=== PATIENT | male | born 1995 | race Caucasian/White ===

== ENCOUNTER 2018-06-02 21:36 | Emergency (ER) | payer OTHER ==
[~2018-06-02] VITALS: Ht 167.6 cm; Wt 59.9 kg
[2018-06-02 21:39] VITALS: BP 125/63
--- NOTE | 2018-06-02 21:46 | NUR ---
PT AMBULATED TO BED 4 WITH VSS. ACCOMPANIED BY SISTER
--- NOTE | 2018-06-02 22:13 | NUR ---
PT BIB SELF C/O FEVER AND GENERAL WEAKNESS SINCE THIS AM AND C/O "BUMP" TO GENITAL AREA. PT IS AWAKE AND ALERT AND ACTING APPROPRIATE. PT KEVIN UTI SYMPTOMS, DENIES DRAINAGE, REDNESS TO AFFECTED AREA. PT ALSO TOOK PILL FROM DAD BUT STATES HE DOES NOT KNOW WHAT IT WAS. NO PMH
[2018-06-02] MEDS ORDERED: ALBUTEROL SULFATE/IPRATROPIU 3 ML SOL IH ONE (22:25)
[2018-06-02] MEDS ORDERED: AMOXICILLIN 500 MG CAP PO ONE (22:50)
[2018-06-02 23:40] VITALS: BP 115/76
--- NOTE | 2018-06-02 23:43 | NUR ---
Patient discharged with v/s stable. Written and verbal after care instructions given and explained. Patient alert, oriented and verbalized understanding of instructions. Ambulatory with steady gait. All questions addressed prior to discharge. ID band removed. Patient advised to follow up with PMD. Rx of PROMETHAZINE, AMOXICILLIN given. Patient educated on indication of medication including possible reaction and side effects. Opportunity to ask questions provided and answered.
== END 2018-06-02 23:42 | disposition home or self-care (01) ==
LOC: MED 21:36
DX: J18.9 Pneumonia, unspecified organism (principal)
CPT/HCPCS: 71045; 94640; 94760; 99283; J7620; Q0092

== ENCOUNTER 2018-08-26 10:41 | Emergency (ER) | payer OTHER ==
[~2018-08-26] VITALS: Ht 170.2 cm; Wt 52.3 kg
[2018-08-26 10:50] VITALS: BP 106/71
[2018-08-26 12:51] LABS: BASOPHILS % (AUTO) 0.2 % (0.0-2.0); EOSINOPHILS # (AUTO) 0.2 K/uL (0-0.4); EOSINOPHILS % (AUTO) 1.2 % (0.0-4.0); HEMATOCRIT 44.4 % (36-52); HEMOGLOBIN 14.5 g/dL (12.0-18.0); LYMPHOCYTES # (AUTO) 1.1 K/uL (2.0-11.5); LYMPHOCYTES % (AUTO) 8.3 % (20.5-51.1); MEAN CORPUSCULAR HEMOGLOBIN 26 pg (27-31); MEAN CORPUSCULAR HGB CONC 33 g/dL (33-37); MEAN CORPUSCULAR VOLUME 80.9 fL (80-94); MONOCYTES # (AUTO) 0.9 K/uL (0.8-1.0); MONOCYTES % (AUTO) 6.7 % (1.7-9.3); NEUTROPHILS # (AUTO) 10.6 K/uL (1.8-7.7); NEUTROPHILS % (AUTO) 83.6 % (42.2-75.2); PLATELET COUNT (AUTO) 436 K/uL (140-450); RED BLOOD CELL COUNT(AUTO) 5.49 MIL/uL (4.20-6.10); RED CELL DISTRIBUTION WIDTH 13.6 % (11.6-13.7); WHITE BLOOD COUNT (AUTO) 12.7 K/uL (4.8-10.8)
[2018-08-26 13:02] LABS: ANION GAP 11.7 (8-16); CARBON DIOXIDE 30.7 mmol/L (21-32); CREATININE 0.8 mg/dL (0.7-1.3); POTASSIUM 4.4 mmol/L (3.5-5.1)
[2018-08-26 13:11] LABS: ALBUMIN 3.8 g/dL (3.4-5.0); TOTAL BILIRUBIN 0.4 mg/dL (0.0-1.0)
[2018-08-26 14:06] VITALS: BP 115/73
[2018-08-27 09:25] LABS: LACTATE DEHYDROGENASE 143 IU/L (121-224)
[2018-08-28 10:12] LABS: LD1 FRACTION 20 % (17-32); LD2 FRACTION 27 % (25-40); LD3 FRACTION 25 % (17-27); LD4 FRACTION 11 % (5-13); LD5 FRACTION 17 % (4-20)
== END 2018-08-26 14:06 | disposition home or self-care (01) ==
LOC: MED 10:41
DX: R05 Cough (principal); R11.10 Vomiting, unspecified
CPT/HCPCS: 36415; 71045; 80053; 83625; 85025; 99285; Q0092

== ENCOUNTER 2018-09-24 16:24 | Inpatient (IN) | payer OTHER ==
[~2018-09-24] VITALS: Ht 167.6 cm; Wt 53.1 kg
[2018-09-24 16:58] VITALS: BP 121/70
[2018-09-24] MEDS ORDERED: NACL 0.9% 2,000 ML IV ONE (19:49)
[2018-09-24] MEDS ORDERED: LEVOFLOXACIN 750 MG/D5W PREMIX 150 ML IV ONE (19:50)
[2018-09-24] MEDS ORDERED: VANCOMYCIN 1,000 MG in DEXTROSE 5% 250 ML IV ONE (19:50)
[2018-09-24] MEDS ORDERED: VANCOMYCIN 1,000 MG VIAL ONE (20:22)
[2018-09-24 20:24] LABS: BASOPHILS % (AUTO) 0.3 % (0.0-2.0); EOSINOPHILS % (AUTO) 0.5 % (0.0-4.0); HEMATOCRIT 44.4 % (36-52); HEMOGLOBIN 14.4 g/dL (12.0-18.0); LYMPHOCYTES # (AUTO) 1.4 K/uL (2.0-11.5); LYMPHOCYTES % (AUTO) 14.8 % (20.5-51.1); MEAN CORPUSCULAR HEMOGLOBIN 26 pg (27-31); MEAN CORPUSCULAR HGB CONC 32 g/dL (33-37); MEAN CORPUSCULAR VOLUME 79.3 fL (80-94); MONOCYTES # (AUTO) 0.8 K/uL (0.8-1.0); MONOCYTES % (AUTO) 8.8 % (1.7-9.3); NEUTROPHILS % (AUTO) 75.6 % (42.2-75.2); PLATELET COUNT (AUTO) 475 K/uL (140-450); RED CELL DISTRIBUTION WIDTH 14.3 % (11.6-13.7); WHITE BLOOD COUNT (AUTO) 9.2 K/uL (4.8-10.8)
[2018-09-24 20:28] LABS: APPEARANCE,URINE CLEAR (CLEAR); BILIRUBIN,URINE NEGATIVE (NEGATIVE); BLOOD, URINE NEGATIVE (NEGATIVE); COLOR,URINE YELLOW (YELLOW); LEUKOCYTE ESTERASE ,URINE NEGATIVE (NEGATIVE); NITRITE, URINE NEGATIVE (NEGATIVE); UGLUCOSE NEGATIVE (NEGATIVE)
[2018-09-24 20:40] LABS: ALBUMIN 3.7 g/dL (3.4-5.0); ANION GAP 13.9 (8-16); CARBON DIOXIDE 30.2 mmol/L (21-32); CREATININE 0.9 mg/dL (0.7-1.3); POTASSIUM 4.1 mmol/L (3.5-5.1); TOTAL BILIRUBIN 0.4 mg/dL (0.0-1.0)
[2018-09-24] MEDS ORDERED: ACETAMINOPHEN 325 MG TAB PO PRN (20:50)
[2018-09-24] MEDS ORDERED: DOCUSATE SODIUM 100 MG GELCAP PO PRN (20:50)
[2018-09-24] MEDS ORDERED: HYDROcodone/APAP 7.5/325 MG 1 TAB PO PRN (20:50)
[2018-09-24] MEDS ORDERED: ONDANSETRON 4 MG/2 ML VIAL IM/IVP PRN (20:50)
[2018-09-24 20:54] LABS: PROTHROMBIN TIME 12.5 secs (10.8-13.4)
[2018-09-24 21:30] VITALS: BP 110/66
[2018-09-24 22:12] LABS: CHOL/HDL RATIO 3.7 (1-4.5); FREE T4 (FREE THYROXINE) 1.24 ng/dL (0.76-1.46); MAGNESIUM 2.1 mg/dL (1.8-2.4); PHOSPHORUS 3.5 mg/dL (2.5-4.9); THYROID STIMULATING HORMONE 1.17 uIU/mL (0.34-3.74)
[2018-09-24 22:14] LABS: BARBITURATE, URINE NEG. ng/ml (NEG <=200); BENZODIAZEPINE, URINE NEG. ng/mL (NEG <=200); CANNABINOID, URINE NEG. ng/mL (NEG <=50); COCAINE, URINE NEG. ng/mL (NEG <=300); OPIATE, URINE NEG. ng/mL (NEG <=2000); PHENCYCLIDINE SCREEN,URINE NEG. ng/mL (NEG <=25)
[2018-09-25] VITALS: BP 102/63
[2018-09-25] MEDS ORDERED: ISONIAZID 100 MG TAB PO SCH ×2 (00:30→21:00)
[2018-09-25] MEDS ORDERED: INFLUENZA VIRUS VACCINE QUAD 0.5 ML SYR IMVAC PRN (00:55)
[2018-09-25] MEDS ORDERED: diphenhydrAMINE 50 MG/ML VIAL IVP SCH (01:30)
[2018-09-25 03:53] VITALS: BP 96/53
[2018-09-25 08:00] VITALS: BP 98/51
[2018-09-25] MEDS ORDERED: ISONIAZID 100 MG TAB PO ONE (09:00)
[2018-09-25] MEDS ORDERED: PYRIDOXINE 50 MG TAB PO SCH (09:00)
[2018-09-25 16:00] VITALS: BP 103/64
[2018-09-26 04:00] VITALS: BP 102/51
[2018-09-26 07:44] LABS: BASOPHILS % (AUTO) 0.3 % (0.0-2.0); EOSINOPHILS # (AUTO) 0.4 K/uL (0-0.4); EOSINOPHILS % (AUTO) 5.4 % (0.0-4.0); HEMOGLOBIN 12.2 g/dL (12.0-18.0); LYMPHOCYTES # (AUTO) 1.4 K/uL (2.0-11.5); LYMPHOCYTES % (AUTO) 18.6 % (20.5-51.1); MEAN CORPUSCULAR HEMOGLOBIN 26 pg (27-31); MEAN CORPUSCULAR HGB CONC 32 g/dL (33-37); MEAN CORPUSCULAR VOLUME 79.1 fL (80-94); MONOCYTES % (AUTO) 12.9 % (1.7-9.3); NEUTROPHILS # (AUTO) 4.7 K/uL (1.8-7.7); NEUTROPHILS % (AUTO) 62.8 % (42.2-75.2); PLATELET COUNT (AUTO) 386 K/uL (140-450); RED CELL DISTRIBUTION WIDTH 14.4 % (11.6-13.7); WHITE BLOOD COUNT (AUTO) 7.5 K/uL (4.8-10.8)
[2018-09-26 08:00] VITALS: BP 95/57
[2018-09-26 08:11] LABS: T4 (THYROXINE) 9.3 ug/dL (4.5-12.0)
[2018-09-26 08:20] LABS: ANION GAP 11.4 (8-16); CARBON DIOXIDE 28.6 mmol/L (21-32); CREATININE 0.6 mg/dL (0.7-1.3)
[2018-09-26 08:44] LABS: MAGNESIUM 1.9 mg/dL (1.8-2.4); PHOSPHORUS 4.2 mg/dL (2.5-4.9)
[2018-09-26 16:00] VITALS: BP 101/54
[2018-09-27] VITALS: BP 107/51
[2018-09-27 08:00] VITALS: BP 95/57
[2018-09-27 08:22] LABS: BASOPHILS # (AUTO) 0.1 K/uL (0.00-0.22); EOSINOPHILS # (AUTO) 0.4 K/uL (0-0.4); EOSINOPHILS % (AUTO) 5.9 % (0.0-4.0); HEMATOCRIT 41.8 % (36-52); HEMOGLOBIN 13.2 g/dL (12.0-18.0); LYMPHOCYTES # (AUTO) 1.5 K/uL (2.0-11.5); LYMPHOCYTES % (AUTO) 21.3 % (20.5-51.1); MEAN CORPUSCULAR HEMOGLOBIN 25 pg (27-31); MEAN CORPUSCULAR HGB CONC 32 g/dL (33-37); MEAN CORPUSCULAR VOLUME 80.2 fL (80-94); MONOCYTES # (AUTO) 0.6 K/uL (0.8-1.0); MONOCYTES % (AUTO) 8.3 % (1.7-9.3); NEUTROPHILS # (AUTO) 4.4 K/uL (1.8-7.7); NEUTROPHILS % (AUTO) 63.5 % (42.2-75.2); PLATELET COUNT (AUTO) 437 K/uL (140-450); RED BLOOD CELL COUNT(AUTO) 5.21 MIL/uL (4.20-6.10); RED CELL DISTRIBUTION WIDTH 14.2 % (11.6-13.7); WHITE BLOOD COUNT (AUTO) 6.8 K/uL (4.8-10.8)
[2018-09-27 08:49] LABS: PROTHROMBIN TIME 10.5 secs (10.8-13.4)
[2018-09-27] MEDS ORDERED: SODIUM CHLORIDE 3% 4 ML SOL INH PRN (15:05)
[2018-09-27 16:00] VITALS: BP 100/58
[2018-09-28] VITALS: BP 102/56
[2018-09-28 08:00] VITALS: BP 96/55
[2018-09-28 11:53] LABS: BASOPHILS % (AUTO) 0.2 % (0.0-2.0); EOSINOPHILS # (AUTO) 0.3 K/uL (0-0.4); EOSINOPHILS % (AUTO) 3.4 % (0.0-4.0); HEMATOCRIT 40.7 % (36-52); HEMOGLOBIN 12.9 g/dL (12.0-18.0); LYMPHOCYTES # (AUTO) 1.3 K/uL (2.0-11.5); LYMPHOCYTES % (AUTO) 15.1 % (20.5-51.1); MEAN CORPUSCULAR HEMOGLOBIN 25 pg (27-31); MEAN CORPUSCULAR HGB CONC 32 g/dL (33-37); MEAN CORPUSCULAR VOLUME 79.8 fL (80-94); MONOCYTES # (AUTO) 0.9 K/uL (0.8-1.0); NEUTROPHILS # (AUTO) 6.1 K/uL (1.8-7.7); NEUTROPHILS % (AUTO) 71.3 % (42.2-75.2); PLATELET COUNT (AUTO) 436 K/uL (140-450); RED CELL DISTRIBUTION WIDTH 14.3 % (11.6-13.7); WHITE BLOOD COUNT (AUTO) 8.5 K/uL (4.8-10.8)
[2018-09-28 11:59] LABS: ANION GAP 12.9 (8-16); CARBON DIOXIDE 30.5 mmol/L (21-32); CREATININE 0.7 mg/dL (0.7-1.3); POTASSIUM 4.4 mmol/L (3.5-5.1)
[2018-09-28 16:00] VITALS: BP 96/44
[2018-09-28 23:58] VITALS: BP 107/60
[2018-09-29 08:00] VITALS: BP 97/57
[2018-09-29 16:00] VITALS: BP 106/57
[2018-09-29] MEDS ORDERED: PYRIDOXINE 50 MG TAB PO SCH (22:30)
[2018-09-29] MEDS ORDERED: ISONIAZID 100 MG TAB PO SCH (22:30)
[2018-09-29] MEDS ORDERED: ETHAMBUTOL 400 MG TAB PO SCH (23:30)
[2018-09-29 23:49] VITALS: BP 113/59
[2018-09-30] MEDS: ISONIAZID 100 MG TAB PO SCH (05:49)
[2018-09-30] MEDS: RIFAMPIN 300 MG CAP PO SCH (05:51)
[2018-09-30 08:00] VITALS: BP 101/52
[2018-09-30] MEDS: ETHAMBUTOL 400 MG TAB PO SCH (09:56)
[2018-09-30] MEDS: PYRIDOXINE 50 MG TAB PO SCH (09:56)
[2018-09-30] MEDS: PYRAZINAMIDE 500 MG TAB PO SCH (10:30)
[2018-09-30 16:00] VITALS: BP 114/51
[2018-10-01] VITALS: BP 100/46
[2018-10-01] MEDS: ISONIAZID 100 MG TAB PO SCH (06:29)
[2018-10-01] MEDS: RIFAMPIN 300 MG CAP PO SCH (06:29)
[2018-10-01 08:00] VITALS: BP 115/67
[2018-10-01] MEDS: PYRAZINAMIDE 500 MG TAB PO SCH (08:38)
[2018-10-01] MEDS: PYRIDOXINE 50 MG TAB PO SCH (08:38)
[2018-10-01] MEDS: ETHAMBUTOL 400 MG TAB PO SCH (08:44)
[2018-10-01 16:00] VITALS: BP 108/57
[2018-10-02] VITALS: BP 111/66
[2018-10-02] MEDS: RIFAMPIN 300 MG CAP PO SCH (06:26)
[2018-10-02] MEDS: ISONIAZID 100 MG TAB PO SCH (06:26)
[2018-10-02 08:00] VITALS: BP 98/53
[2018-10-02] MEDS: PYRIDOXINE 50 MG TAB PO SCH (08:13)
[2018-10-02] MEDS: PYRAZINAMIDE 500 MG TAB PO SCH (08:14)
[2018-10-02] MEDS: ETHAMBUTOL 400 MG TAB PO SCH (08:16)
[2018-10-02 11:55] LABS: ALBUMIN 3.3 g/dL (3.4-5.0); BILIRUBIN,DIRECT 0.3 mg/dL (0.0-0.3); TOTAL BILIRUBIN 0.7 mg/dL (0.0-1.0)
[2018-10-02 16:00] VITALS: BP 105/65
[2018-10-02 23:56] VITALS: BP 109/64
[2018-10-03] MEDS: ISONIAZID 100 MG TAB PO SCH (06:30)
[2018-10-03] MEDS: RIFAMPIN 300 MG CAP PO SCH (06:31)
[2018-10-03 06:54] LABS: BASOPHILS # (AUTO) 0.1 K/uL (0.00-0.22); EOSINOPHILS # (AUTO) 0.2 K/uL (0-0.4); EOSINOPHILS % (AUTO) 2.5 % (0.0-4.0); HEMATOCRIT 41.9 % (36-52); HEMOGLOBIN 13.4 g/dL (12.0-18.0); LYMPHOCYTES # (AUTO) 1.6 K/uL (2.0-11.5); LYMPHOCYTES % (AUTO) 20.3 % (20.5-51.1); MEAN CORPUSCULAR HEMOGLOBIN 26 pg (27-31); MEAN CORPUSCULAR HGB CONC 32 g/dL (33-37); MEAN CORPUSCULAR VOLUME 80.4 fL (80-94); MONOCYTES # (AUTO) 0.8 K/uL (0.8-1.0); MONOCYTES % (AUTO) 10.6 % (1.7-9.3); NEUTROPHILS # (AUTO) 5.1 K/uL (1.8-7.7); NEUTROPHILS % (AUTO) 65.6 % (42.2-75.2); PLATELET COUNT (AUTO) 467 K/uL (140-450); RED CELL DISTRIBUTION WIDTH 14.5 % (11.6-13.7); WHITE BLOOD COUNT (AUTO) 7.8 K/uL (4.8-10.8)
[2018-10-03 07:22] LABS: ANION GAP 7.4 (8-16); CARBON DIOXIDE 33.9 mmol/L (21-32); CREATININE 0.7 mg/dL (0.7-1.3); POTASSIUM 4.3 mmol/L (3.5-5.1)
[2018-10-03 07:33] LABS: MAGNESIUM 1.9 mg/dL (1.8-2.4); PHOSPHORUS 4.4 mg/dL (2.5-4.9)
[2018-10-03 08:00] VITALS: BP 97/59
[2018-10-03] MEDS: PYRAZINAMIDE 500 MG TAB PO SCH (08:41)
[2018-10-03] MEDS: PYRIDOXINE 50 MG TAB PO SCH (08:41)
[2018-10-03] MEDS: ETHAMBUTOL 400 MG TAB PO SCH (08:42)
[2018-10-03 15:45] VITALS: BP 108/70
[2018-10-04] VITALS: BP 108/69
[2018-10-04] MEDS: ISONIAZID 100 MG TAB PO SCH (06:04)
[2018-10-04] MEDS: RIFAMPIN 300 MG CAP PO SCH (06:04)
[2018-10-04 07:09] LABS: BASOPHILS % (AUTO) 0.4 % (0.0-2.0); EOSINOPHILS # (AUTO) 0.3 K/uL (0-0.4); EOSINOPHILS % (AUTO) 3.6 % (0.0-4.0); HEMATOCRIT 40.2 % (36-52); HEMOGLOBIN 12.7 g/dL (12.0-18.0); LYMPHOCYTES # (AUTO) 1.6 K/uL (2.0-11.5); LYMPHOCYTES % (AUTO) 21.1 % (20.5-51.1); MEAN CORPUSCULAR HEMOGLOBIN 25 pg (27-31); MEAN CORPUSCULAR HGB CONC 32 g/dL (33-37); MEAN CORPUSCULAR VOLUME 80.2 fL (80-94); MONOCYTES # (AUTO) 0.8 K/uL (0.8-1.0); MONOCYTES % (AUTO) 10.3 % (1.7-9.3); NEUTROPHILS # (AUTO) 4.8 K/uL (1.8-7.7); NEUTROPHILS % (AUTO) 64.6 % (42.2-75.2); PLATELET COUNT (AUTO) 455 K/uL (140-450); RED BLOOD CELL COUNT(AUTO) 5.01 MIL/uL (4.20-6.10); RED CELL DISTRIBUTION WIDTH 15.1 % (11.6-13.7); WHITE BLOOD COUNT (AUTO) 7.4 K/uL (4.8-10.8)
[2018-10-04 07:18] LABS: ALBUMIN 3.1 g/dL (3.4-5.0); ANION GAP 9.3 (8-16); CARBON DIOXIDE 32.9 mmol/L (21-32); CREATININE 0.8 mg/dL (0.7-1.3); MAGNESIUM 1.8 mg/dL (1.8-2.4); PHOSPHORUS 4.9 mg/dL (2.5-4.9); POTASSIUM 4.2 mmol/L (3.5-5.1); TOTAL BILIRUBIN 0.2 mg/dL (0.0-1.0)
[2018-10-04 08:00] VITALS: BP 97/58
[2018-10-04] MEDS: ETHAMBUTOL 400 MG TAB PO SCH (08:47)
[2018-10-04] MEDS: PYRAZINAMIDE 500 MG TAB PO SCH (08:47)
[2018-10-04] MEDS: PYRIDOXINE 50 MG TAB PO SCH (08:47)
[2018-10-04 16:00] VITALS: BP 106/63
[2018-10-04 20:00] VITALS: BP 98/63
[2018-10-05] MEDS: RIFAMPIN 300 MG CAP PO SCH (06:20)
[2018-10-05] MEDS: ISONIAZID 100 MG TAB PO SCH (06:20)
[2018-10-05 08:00] VITALS: BP 99/64
[2018-10-05] MEDS: PYRIDOXINE 50 MG TAB PO SCH (09:43)
[2018-10-05] MEDS: PYRAZINAMIDE 500 MG TAB PO SCH (09:44)
[2018-10-05] MEDS: ETHAMBUTOL 400 MG TAB PO SCH (09:44)
[2018-10-05 16:00] VITALS: BP 116/116
[2018-10-06] VITALS: BP 112/64
[2018-10-06] MEDS: RIFAMPIN 300 MG CAP PO SCH (05:36)
[2018-10-06] MEDS: ISONIAZID 100 MG TAB PO SCH (05:36)
[2018-10-06 08:00] VITALS: BP 113/75
[2018-10-06] MEDS: PYRIDOXINE 50 MG TAB PO SCH (09:15)
[2018-10-06] MEDS: ETHAMBUTOL 400 MG TAB PO SCH (09:15)
[2018-10-06] MEDS: PYRAZINAMIDE 500 MG TAB PO SCH (09:16)
[2018-10-06 16:00] VITALS: BP 113/57
[2018-10-07] VITALS: BP 122/70
[2018-10-07] MEDS: ISONIAZID 100 MG TAB PO SCH (06:05)
[2018-10-07] MEDS: RIFAMPIN 300 MG CAP PO SCH (06:05)
[2018-10-07 08:00] VITALS: BP 121/61
[2018-10-07] MEDS: PYRIDOXINE 50 MG TAB PO SCH (09:39)
[2018-10-07] MEDS: ETHAMBUTOL 400 MG TAB PO SCH (09:39)
[2018-10-07] MEDS: PYRAZINAMIDE 500 MG TAB PO SCH (09:40)
[2018-10-07 16:00] VITALS: BP 112/64
[2018-10-08] VITALS: BP 110/61
[2018-10-08] MEDS: RIFAMPIN 300 MG CAP PO SCH (07:14)
[2018-10-08] MEDS: ISONIAZID 100 MG TAB PO SCH (07:14)
[2018-10-08 08:00] VITALS: BP 119/73
[2018-10-08] MEDS: PYRIDOXINE 50 MG TAB PO SCH (10:16)
[2018-10-08] MEDS ORDERED: MYA400 PO (11:37)
[2018-10-08] MEDS ORDERED: PYRI50TA PO (11:37)
[2018-10-08] MEDS ORDERED: ISON100T8 PO (11:37)
[2018-10-08] MEDS ORDERED: RIFA300C6 PO (11:37)
[2018-10-08] MEDS ORDERED: PZA500 PO (11:37)
[2018-10-09] MEDS ORDERED: ISONIAZID 100 MG TAB PO SCH (06:30)
[2018-10-09] MEDS ORDERED: RIFAMPIN 300 MG CAP PO SCH (06:30)
[2018-10-09] MEDS ORDERED: PYRAZINAMIDE 500 MG TAB PO SCH (09:00)
[2018-10-09] MEDS ORDERED: ETHAMBUTOL 400 MG TAB PO SCH (09:00)
== END 2018-10-08 18:15 | disposition home or self-care (01) | DRG 137 ==
LOC: MED 16:24 → MTU 20:51
PROVIDERS: ADMIT General Practice; ATTEND General Practice
DX: A15.0 Tuberculosis of lung (principal); D68.9 Coagulation defect, unspecified; E44.1 Mild protein-calorie malnutrition; E78.5 Hyperlipidemia, unspecified; J69.0 Pneumonitis due to inhalation of food and vomit; E86.0 Dehydration; Z68.1 Body mass index [BMI] 19.9 or less, adult; Z23 Encounter for immunization
CPT/HCPCS: 36415; 36600; 71045; 71250; 80048; 80053; 80076; 80305; 81003; 82150; 82803; 83036; 83605; 83690; 83735; 83880; 84100; 84436; 84439; 84443; 84479; 84484; 85025; 85610; 85730; 87040; 87070; 87081; 87086; 87116; 87190; 87205; 87206; 89220; 90658; 93005; 94640; 96365; 99291; J1200; J1956; J3370; J7030; J7060; Q0092